=== PATIENT | male | born 2000 | race Caucasian/White ===

== ENCOUNTER 2022-05-03 05:27 | Emergency (ER) | payer MEDICAID ==
[2022-05-03] MEDS ORDERED: Sodium Chloride 0.9% 1,000 ML IV ONE (05:42)
[2022-05-03] MEDS ORDERED: Pantoprazole 40 MG Vial IVPUSH ONE (05:42)
[2022-05-03] MEDS ORDERED: Ondansetron 4 MG/2 ML SDV IVPUSH ONE (05:42)
[2022-05-03 06:26] LABS: ESTIMATED GFR > 60 (>60)
== END 2022-05-03 06:50 | disposition home or self-care (01) ==
LOC: FB.ED 05:27
DX: K92.2 Gastrointestinal hemorrhage, unspecified (principal); I86.4 Gastric varices; F10.10 Alcohol abuse, uncomplicated; F17.210 Nicotine dependence, cigarettes, uncomplicated; Y90.0 Blood alcohol level of less than 20 mg/100 ml
CPT/HCPCS: 36415; 80053; 80307; 83690; 85025; 85610; 96361; 96374; 96375; 99284; C9113; J2405; J7030; 99283